=== PATIENT | female | born 2000 | race Caucasian/White ===

== ENCOUNTER 2020-09-28 17:56 | Emergency (ER) | payer OTHER ==
[2020-09-28 18:48] LABS: HEMOGLOBIN 14.2 gm/dl (12.3-15.3); RED BLOOD COUNT 5.34 M/UL (4.00-5.10)
[2020-09-28 18:57] LABS: BORDETELLA PARAPERTUSSIS Not Detected (Not Detectd); BORDETELLA PERTUSSIS Not Detected (Not Detectd); CHLAMYDIA PNEUMONIAE Not Detected (Not Detectd); CORONAVIRUS HKU1 Not Detected (Not Detectd); CORONAVIRUS NL63 Not Detected (Not Detectd); CORONAVIRUS OC43 Not Detected (Not Detectd); CORONOAVIRUS 229E Not Detected (Not Detectd); HUMAN METAPNEUMOVIRUS Not Detected (Not Detectd); HUMAN RHINOVIRUS/ENTEROVIRUS Not Detected (Not Detectd); INFLUENZA A Not Detected (Not Detectd); INFLUENZA B Not Detected (Not Detectd); MYCOPLASMA PNEUMONIAE Not Detected (Not Detectd); PARAINFLUENZA VIRUS 1 Not Detected (Not Detectd); PARAINFLUENZA VIRUS 2 Not Detected (Not Detectd); PARAINFLUENZA VIRUS 3 Not Detected (Not Detectd); PARAINFLUENZA VIRUS 4 Not Detected (Not Detectd); RESPIRATORY SYNCYTIAL VIRUS Not Detected (Not Detectd)
[2020-09-28 19:06] LABS: BUN/CREATININE RATIO 11 (0-10)
[2020-09-28 20:45] LABS: SARS-CoV-2 NOT DETECTED (Not Detectd)
[2020-09-28] MEDS ORDERED: ZOFRAN ODT 4 MG4 MG PO (21:01)
== END 2020-09-28 21:26 | disposition home or self-care (01) ==
LOC: ER1 17:56
PROVIDERS: Emergency Medicine; Physician Assistant
DX: E87.6 Hypokalemia (principal); R50.9 Fever, unspecified; M79.10 Myalgia, unspecified site; Z20.822 Contact with and (suspected) exposure to COVID-19
CPT/HCPCS: 71045; 80053; 85025; 87633; 99284